=== PATIENT | male | born 1995 | race Hispanic/Latino ===

== ENCOUNTER 2016-11-05 05:35 | Emergency (ER) | payer OTHER ==
[~2016-11-05] VITALS: Ht 172.7 cm; Wt 59.0 kg
[2016-11-05] MEDS ORDERED: IBUPROFEN600 MG PO (06:17)
[2016-11-05] MEDS ORDERED: CRUTCH1 EACH (06:17)
== END 2016-11-05 06:38 | disposition home or self-care (01) ==
LOC: ED 05:35
DX: S93.402A Sprain of unspecified ligament of left ankle, initial encounter (principal); F17.200 Nicotine dependence, unspecified, uncomplicated; W22.8XXA Striking against or struck by other objects, initial encounter
CPT/HCPCS: 73610; 99283